=== PATIENT | female | born 1970 | race Caucasian/White ===

== ENCOUNTER 2018-05-19 15:13 | Emergency (ER) | payer BC, OTHER ==
[2018-05-19] MEDS ORDERED: IPRATROPIUM/ALBUTEROL 3 ML NEB INH STA (16:25)
[2018-05-19] MEDS ORDERED: DEXAMETHASONE 10 MG/ML VIAL PO STA (16:25)
--- NOTE | 2018-05-19 16:32 | ED Physician Documentation ---
PD HPI URI - Stated complaint Stated Complaint: COUGH, TIGHT LUNGS - Chief complaint Chief Complaint: Resp - History obtained from History obtained from: Patient - History of Present Illness Timing - onset: How many weeks ago (2) Timing duration: Weeks (2) Timing details: Gradual onset Pain level max: 0 Pain level now: 0 Associated symptoms: Nasal congestion, Rhinorrhea, Dry cough, Dyspnea (wheezing) . No: Fever, Chills Contributing factors: Sick contact (parents both with recent pneumonia) Improves by: Rest, MDI/nebulizer (albuterol) Worsened by: Activity, Breathing Similar symptoms before: Diagnosis ("bronchitis") Recently seen: Other (Patient was recently seen at an urgent care clinic in [place] where she lives, had a negative chest x-ray there. Was placed on azithromycin for "bronchitis". She is not better yet. Was also given an albuterol inhaler without a spacer. Was also given a prescription for prednisone which she has not yet taken) Review of Systems Ten Systems: 10 systems reviewed and negative Constitutional: denies: Fever, Chills Nose: reports: Rhinorrhea / runny nose, Congestion Throat: denies: Sore throat Cardiac: denies: Chest pain / pressure Respiratory: reports: Dyspnea, Cough, Wheezing GI: denies: Nausea, Vomiting, Diarrhea Skin: denies: Rash Musculoskeletal: denies: Neck pain, Back pain Neurologic: denies: Focal weakness, Numbness, Headache PD PAST MEDICAL HISTORY - Past Medical History Past Medical History: Yes Endocrine/Autoimmune: Other Psych: Anxiety - Past Surgical History 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 - Present Medications Home Medications: Ambulatory Orders Medication Instructions Recorded Confirmed Fluoxetine HCl [Prozac] 20 mg PO BID 04/09/13 10/16/16 Desmopressin Acetate 0.2 mg PO BID 10/04/13 10/16/16 Benzonatate [Tessalon Perle] 100 - 200 mg PO TID PRN #30 capsule 05/19/18 Cetirizine HCl/Pseudoephedrine 1 each PO BID PRN #30 tab.er.12h 05/19/18 [Zyrtec-D Tablet] traZODone [Desyrel] 100 mg PO HS 05/19/18 05/19/18 - Allergies Allergies/Adverse Reactions: Allergies Allergy/AdvReac Type Severity Reaction Status Date / Time acetaminophen [From Percocet] Allergy unknown Verified 05/19/18 15:26 doxycycline Allergy Respiratory Verified 05/19/18 15:26 oxycodone HCl * AdvReac Dizziness Verified 05/19/18 15:26 [From Percocet] sulfamethoxazole AdvReac Dizziness Verified 05/19/18 15:26 [From Bactrim] trimethoprim [From Bactrim] AdvReac Dizziness Verified 05/19/18 15:26 - Living Situation Living Arrangement: reports: At home - Social History Does the pt smoke?: Yes Smoking Status: Current every day smoker Does the pt drink ETOH?: Yes Does the pt have substance abuse?: No - Immunizations Immunizations are current?: No - POLST Patient has POLST: No PD ED PE NORMAL - Vitals Vital signs reviewed: Yes - General General: Alert and oriented X 3, No acute distress - HEENT HEENT: Moist mucous membranes - Neck Neck: Supple, no meningeal sign - Cardiac Cardiac: RRR - Respiratory Respiratory: Other (wheezing B. Rhonchi RLL. no resp distress.) - Abdomen Abdomen: Soft, Non tender, Non distended - Back Back: No CVA TTP, No spinal TTP - Derm Derm: Warm and dry - Extremities Extremities: No edema, No calf tenderness / cord - Neuro Neuro: Alert and oriented X 3 - Psych Psych: Normal mood, Normal affect Results - Vitals Vitals: Vital Signs - 24 hr 05/19/18 05/19/18 05/19/18 15:23 16:50 17:17 Temperature 36.3 C L 36.4 C L Heart Rate 59 L 67 62 Respiratory 16 16 18 Rate Blood Pressure 130/83 H 126/73 O2 Saturation 99 100 Oxygen O2 Source Room air - Rads (name of study) cxr Radiology: Prelim report reviewed, EMP read contemporaneously, See rad report ( No acute disease) PD MEDICAL DECISION MAKING - ED course Complexity details: reviewed results, re-evaluated patient, considered differential, d/w patient ED course: Patient is a 47-year-old female who presents to the emergency department with coughing for the past several weeks. She is a smoker. No acute findings on x- ray. X-rays performed as there were rhonchi that did not clear with coughing in the right lower lobe and there was concern for possible pneumonia. She feels much better after nebulizer treatment here. Also given spacer teaching. Will continue supportive care and have her start her steroids at home. Given dexamethasone here. No hypoxia. No respiratory distress. Patient counseled regarding signs and symptoms for which I believe and urgent re-evaluation would be necessary. Patient with good understanding of and agreement to plan and is comfortable going home at this time This document was made in part using voice recognition software. While efforts are made to proofread this document, sound alike and grammatical errors may occur. - Sepsis Event Vital Signs: Vital Signs - 24 hr 05/19/18 05/19/18 05/19/18 15:23 16:50 17:17 Temperature 36.3 C L 36.4 C L Heart Rate 59 L 67 62 Respiratory 16 16 18 Rate Blood Pressure 130/83 H 126/73 O2 Saturation 99 100 Oxygen O2 Source Room air Departure - Departure Disposition: 01 Home, Self Care Clinical Impression: Upper respiratory tract infection Qualifiers: URI type: unspecified viral URI Qualified Code(s): J06.9 - Acute upper respiratory infection, unspecified Condition: Good Instructions: ED URI Viral W Wheezing Follow-Up: ANIYAH BALL [Primary Care Provider] - Within 1 week Prescriptions: Benzonatate [Tessalon Perle] 100 - 200 mg PO TID PRN #30 capsule PRN Reason: Cough Cetirizine HCl/Pseudoephedrine [Zyrtec-D Tablet] 1 each PO BID PRN #30 tab.er.12h PRN Reason: Nasal Congestion Comments: Continue the inhaler at home and start the prednisone tomorrow. Return if you worsen. There is no pneumonia on your chest x-ray today. Discharge Date/Time: 05/19/18 17:17
[2018-05-19 17:18] VITALS: BP 126/73
--- NOTE | 2018-05-19 17:22 | XRAY Report ---
Procedure Date: 05/19/2018 Accession Number: [id number] / [id number] Procedure: XR - Chest 2 View X-Ray CPT Code: 17818 FULL RESULT: EXAM: CHEST RADIOGRAPHY EXAM DATE: 05/19/2018 04:55 PM. CLINICAL HISTORY: Cough. Rhonchi RLL. COMPARISON: 10/16/2016. TECHNIQUE: 2 views. FINDINGS: Lungs/Pleura: No focal opacities evident. No pleural effusion. No pneumothorax. Normal volumes. Mediastinum: Heart and mediastinal contours are unremarkable. Other: No bony abnormality noted. Left breast clip again identified. IMPRESSION: Normal 2-view chest radiography. RADIA
== END 2018-05-19 17:17 | disposition home or self-care (01) ==
LOC: ED 15:13
DX: J06.9 Acute upper respiratory infection, unspecified (principal)
CPT/HCPCS: 71046; 94640; 94664; 99283

== ENCOUNTER 2019-09-01 16:02 | Outpatient (CLI) | payer OTHER | END 2019-09-01 16:03 | disposition critical access hospital (66) | LOC: EMS 16:02 | PROVIDERS: ATTEND Surgery | DX: R06.00 Dyspnea, unspecified (principal); F41.9 Anxiety disorder, unspecified | CPT/HCPCS: A0425; A0429 ==

== ENCOUNTER 2019-09-01 16:32 | Emergency (ER) | payer OTHER ==
[2019-09-01] MEDS ORDERED: LORazepam 1 MG TABLET PO STA (17:02)
--- NOTE | 2019-09-01 17:04 | ED Physician Documentation ---
PD HPI DYSPNEA - Stated complaint Stated Complaint: ANXIETY - Chief complaint Chief Complaint: Resp - History obtained from History obtained from: Patient, EMS - History of Present Illness Timing - onset: Other (49-year-old woman with history of anxiety has been having issues lately with anxiety, shortness of breath, and back pain. This is her seventh ER visit in the last month per her and has had multiple negative chest x-rays, negative D-dimers, negative troponins. She was given hydroxyzine this morning which was ineffective. She was maintained on Klonopin long-term but stopped several months ago.) Review of Systems Ten Systems: 10 systems reviewed and negative Constitutional: denies: Fever, Chills Cardiac: denies: Chest pain / pressure, Pedal edema, Calf pain Respiratory: reports: Dyspnea. 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 - Present Medications Home Medications: Ambulatory Orders Medication Instructions Recorded Confirmed Fluoxetine HCl [Prozac] 20 mg PO BID 04/09/13 10/16/16 Desmopressin Acetate 0.2 mg PO BID 10/04/13 10/16/16 Benzonatate [Tessalon Perle] 100 - 200 mg PO TID PRN #30 capsule 05/19/18 Cetirizine HCl/Pseudoephedrine 1 each PO BID PRN #30 tab.er.12h 05/19/18 [Zyrtec-D Tablet] traZODone [Desyrel] 100 mg PO HS 05/19/18 05/19/18 Lorazepam [Ativan] 1 mg PO TID PRN #15 tablet 09/01/19 - Allergies Allergies/Adverse Reactions: Allergies Allergy/AdvReac Type Severity Reaction Status Date / Time acetaminophen [From Percocet] Allergy unknown Verified 05/19/18 15:26 doxycycline Allergy Respiratory Verified 05/19/18 15:26 oxycodone HCl * AdvReac Dizziness Verified 05/19/18 15:26 [From Percocet] sulfamethoxazole AdvReac Dizziness Verified 05/19/18 15:26 [From Bactrim] trimethoprim [From Bactrim] AdvReac Dizziness Verified 05/19/18 15:26 - Social History Does the pt smoke?: No Smoking Status: Former smoker Does the pt drink ETOH?: Yes Does the pt have substance abuse?: No - Immunizations Immunizations are current?: No - POLST Patient has POLST: No PD ED PE NORMAL - Vitals Vital signs reviewed: Yes - General General: Alert and oriented X 3, No acute distress, Other (She is anxious) - Cardiac Cardiac: RRR, No murmur - Respiratory Respiratory: No respiratory distress, Clear bilaterally - Abdomen Abdomen: Soft, Non tender - Extremities Extremities: No edema, No calf tenderness / cord - Neuro Neuro: Alert and oriented X 3, Normal speech Results - Vitals Vitals: Vital Signs - 24 hr 09/01/19 09/01/19 16:36 18:11 Temperature 37.2 C 36.8 C Heart Rate 79 58 L Respiratory 24 18 Rate Blood Pressure 139/88 H 127/86 H O2 Saturation 98 98 Oxygen O2 Source Room air - Labs Labs: Laboratory Tests 09/01/19 09/01/19 17:15 17:15 WBC 8.3 RBC 4.18 L Hgb 12.2 Hct 37.2 MCV 89.0 MCH 29.2 MCHC 32.8 RDW 12.6 Plt Count 405 MPV 9.7 Neut # (Auto) 4.6 Lymph # (Auto) 2.8 [place] # (Auto) 0.7 Eos # (Auto) 0.1 Baso # (Auto) 0.1 Absolute Nucleated RBC 0.00 Nucleated RBC % 0.0 Sodium 141 Potassium 3.7 Chloride 108 Carbon Dioxide 24 Anion Gap 9.0 BUN 9 Creatinine 0.6 Estimated GFR (MDRD) 105 Glucose 90 Calcium 9.9 PD MEDICAL DECISION MAKING - ED course ED course: 49-year-old woman with anxiety and shortness of breath. No clinical evidence of PE, d-dimer was negative on previous visits, PERC negative. Has been thoroughly ruled out for ACS. Previous x-rays, 3 of them in the last month have been negative per her. Feeling much better after Ativan and visibly less anxious. Departure - Departure Disposition: 01 Home, Self Care Clinical Impression: Anxiety Condition: Good Record reviewed to determine appropriate education?: Yes Instructions: ED Panic Attack Prescriptions: Lorazepam [Ativan] 1 mg PO TID PRN #15 tablet PRN Reason: Anxiety Comments: Talk with your doctor about changing her counselor to a cognitive behavioral therapist. Return for new or worsening symptoms. Do not drink or drive while taking lorazepam/Ativan. Discharge Date/Time: 09/01/19 18:10
[2019-09-01 17:23] LABS: BASOPHILS # (AUTO) 0.1 10^3/uL (0.0-0.1); EOSINOPHILS # (AUTO) 0.1 10^3/uL (0.0-0.7); HGB - HEMOGLOBIN 12.2 g/dL (12.0-16.0); LYMPHOCYTES # (AUTO) 2.8 10^3/uL (1.5-3.5); LYMPHOCYTES % (AUTO) 33.5 %; MEAN CORPUSCULAR HEMOGLOBIN 29.2 pg (27.0-31.0); MEAN CORPUSCULAR HGB CONC 32.8 g/dL (32.0-36.0); MEAN PLATELET VOLUME 9.7 fL (7.9-10.8); MONOCYTES # (AUTO) 0.7 10^3/uL (0.0-1.0); MONOCYTES % (AUTO) 8.8 %; NEUTROPHILS # (AUTO) 4.6 10^3/uL (1.5-6.6); NEUTROPHILS % (AUTO) 55.3 %; PLT - PLATELET COUNT 405 10^3/uL (130-450); RED BLOOD COUNT 4.18 10^6/uL (4.20-5.40); RED CELL DISTRIBUTION WIDTH 12.6 % (12.0-15.0); WHITE BLOOD COUNT 8.3 x10^3/uL (4.8-10.8)
[2019-09-01 17:31] LABS: CALCIUM 9.9 mg/dL (8.5-10.3); CREATININE 0.6 mg/dL (0.4-1.0)
[2019-09-01 18:12] VITALS: BP 127/86
== END 2019-09-01 18:10 | disposition home or self-care (01) ==
LOC: EDUNIT# → ED 16:32
DX: F41.9 Anxiety disorder, unspecified (principal); E23.2 Diabetes insipidus; Z87.891 Personal history of nicotine dependence
CPT/HCPCS: 36415; 80048; 85025; 99283; 99284; J8499

== ENCOUNTER 2022-07-30 07:46 | Outpatient (CLI) | payer OTHER ==
--- NOTE | 2022-07-30 09:02 | CT Report ---
PROCEDURE: Low Dose Lung Cancer Screen INDICATIONS: CURRENT SMOKER TECHNIQUE: Noncontrast low-dose axial images were acquired from the pulmonary apices to the posterior costophren ic angles. Multiplanar MIP reformats were then reconstructed. For radiation dose reduction, the follo wing was used: automated exposure control, adjustment of mA and/or kV according to patient size. COMPARISON: None. FINDINGS: Image quality: Excellent. Lungs and pleura: 4 mm nodule in the periphery the right lower lobe on image 4/164. Mediastinum: Heart size is normal. No pericardial effusion. No mediastinal adenopathy by size crit eria. Thoracic aorta and central pulmonary arteries are normal in size. Esophagus is normal in brandon alexis. No hiatal hernia. Bones and chest wall: No suspicious bony lesions. No vertebral body compression fractures. No axil ganesh or supraclavicular adenopathy by size criteria. The thyroid is normal in size and there are no incidental findings. Abdomen: Visualized upper abdomen solid organs and bowel loops appear normal in the absence of contr ast. IMPRESSION: Small 4 mm nodule in the periphery the right lower lobe. Lung RADS category 1: Benign findings. Continue annual screening Reviewed by: Beto Dudley MD on 07/30/2022 8:00 AM APARNA Approved by: Beto Dudley MD on 07/30/2022 8:00 AM APARNA Station ID: [id number]
== END 2022-07-30 07:47 | disposition home or self-care (01) ==
LOC: DI 07:46
PROVIDERS: ATTEND Physician Assistant
DX: Z12.2 Encounter for screening for malignant neoplasm of respiratory organs (principal); F17.210 Nicotine dependence, cigarettes, uncomplicated; R91.1 Solitary pulmonary nodule

== ENCOUNTER 2023-03-11 12:53 | Emergency (ER) | payer OTHER ==
--- NOTE | 2023-03-11 13:13 | ED Physician Documentation ---
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 Subsequently developed pain between the shoulder blades with epigastric pain about 1130 this morning. There is no associated shortness of breath. No history of heart problems. She declines anything for the pain. 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 - Present Medications Home Medications: Ambulatory Orders Medication Instructions Recorded Confirmed Fluoxetine HCl [Prozac] 20 mg PO BID 04/09/13 10/16/16 Desmopressin Acetate 0.2 mg PO BID 10/04/13 10/16/16 Benzonatate [Tessalon Perle] 100 - 200 mg PO TID PRN #30 capsule 05/19/18 Cetirizine HCl/Pseudoephedrine 1 each PO BID PRN #30 tab.er.12h 05/19/18 [Zyrtec-D Tablet] traZODone [Desyrel] 100 mg PO HS 05/19/18 05/19/18 Lorazepam [Ativan] 1 mg PO TID PRN #15 tablet 09/01/19 - Allergies Allergies/Adverse Reactions: Allergies Allergy/AdvReac Type Severity Reaction Status Date / Time acetaminophen [From Percocet] Allergy unknown Verified 03/11/23 13:02 doxycycline Allergy Respiratory Verified 03/11/23 13:02 oxycodone HCl * AdvReac Dizziness Verified 03/11/23 13:02 [From Percocet] sulfamethoxazole AdvReac Dizziness Verified 03/11/23 13:02 [From Bactrim] trimethoprim [From Bactrim] AdvReac Dizziness Verified 03/11/23 13:02 - Social History Does the pt smoke?: No Smoking Status: Former smoker Does the pt drink ETOH?: Yes Does the pt have substance abuse?: No - Immunizations Immunizations are current?: No - POLST Patient has POLST: No PD ED PE NORMAL - Vitals Vital signs reviewed: Yes - General General: Alert and oriented X 3, No acute distress - HEENT HEENT: PERRL, EOMI - Neck Neck: Supple, no meningeal sign, No bony TTP - Cardiac Cardiac: RRR, No murmur, Strong equal pulses (Equal radial pulses) - Respiratory Respiratory: No respiratory distress, Clear bilaterally - Abdomen Abdomen: Non tender - Extremities Extremities: No edema, No calf tenderness / cord - Neuro Neuro: Alert and oriented X 3, Normal speech Results - Vitals Vitals: Vital Signs - 24 hr 03/11/23 03/11/23 12:55 15:01 Temperature 36.6 C Heart Rate 73 71 Respiratory 16 18 Rate Blood Pressure 158/85 H 140/81 H O2 Saturation 97 99 Oxygen O2 Source Room air - EKG (time done) 1246 EKG releavant findings:: EKG personally interpreted by author of this note. Relevant findings are: Rate: Rate (enter#) (68) Rhythm: NSR [place]: Normal Intervals: Normal MD QRS: Normal Ischemia: Normal ST segments. No: ST elevation c/w ischemia, ST depression - Labs Labs: Laboratory Tests 03/11/23 03/11/23 03/11/23 13:45 14:01 14:01 WBC 7.7 RBC 4.05 L Hgb 11.7 L Hct 36.1 L MCV 89.1 MCH 28.9 MCHC 32.4 RDW 12.6 Plt Count 372 MPV 9.4 Neut # (Auto) 5.9 Lymph # (Auto) 1.3 L [place] # (Auto) 0.4 Eos # (Auto) 0.1 Baso # (Auto) 0.1 Absolute Nucleated RBC 0.00 Nucleated RBC % 0.0 Sodium 136 Potassium 3.5 Chloride 102 Carbon Dioxide 24 Anion Gap 10.0 BUN 14 Creatinine 0.6 Estimated GFR (MDRD) 104 Glucose 95 Calcium 9.2 Total Bilirubin 0.3 AST 21 ALT 22 Alkaline Phosphatase 73 Troponin I High Sens 2.7 Total Protein 7.7 Albumin 4.1 Globulin 3.6 Albumin/Globulin Ratio 1.1 Lipase 36 - Rads (name of study) CT angiography abdomen: Small hiatal hernia, fat-containing umbilical hernia, diverticulosis, normal aorta Relevant Findings:: Final report received, EMP independent interpretation of test CT angiography chest negative Relevant Findings:: Final report received, EMP independent interpretation of test PD Medical Decision Making - ED course Complexity details: reviewed results (CBC reviewed showing mild anemia. CMP reviewed and normal. Troponin normal/negative at 2.7.), considered differential (52-year-old woman with chest pain radiating to the back. Differential would include a gastric cause, ACS, dissection.) Departure - Departure Disposition: 01 Home, Self Care Clinical Impression: Atypical chest pain Condition: Good Record reviewed to determine appropriate education?: Yes Instructions: ED Chest Pain Atypical Unkn Cause Comments: No worrisome or concerning acute findings on lab work or CT scanning today. Your aorta is fine. You do have a small hiatal and umbilical hernias. Suspect your pain was related to the excess caffeine use and stomach upset. Return if years. Follow-up with your primary care physician, next available appointment.
--- NOTE | 2023-03-11 13:25 | XRAY Report ---
PROCEDURE: Chest 1 View X-Ray INDICATIONS: Chest Pain TECHNIQUE: One view of the chest was acquired. COMPARISON: Chest x-ray 717 FINDINGS: Surgical changes and devices: None. Lungs and pleura: No pleural effusions or pneumothorax. Lungs are clear. Mediastinum: Mediastinal contours appear normal. Heart size is normal. Bones and chest wall: No suspicious bony lesions. Overlying soft tissues appear unremarkable. IMPRESSION: No acute pulmonary process. Reviewed by: Araceli Jane MD on 03/11/2023 1:24 PM PDT Approved by: Araceli Jane MD on 03/11/2023 1:24 PM PDT Station ID: [id number]
[2023-03-11] MEDS ORDERED: iohexoL-300 100 ML VIAL ONE (13:52)
[2023-03-11 13:53] LABS: BASOPHILS # (AUTO) 0.1 10^3/uL (0.0-0.1); BASOPHILS % (AUTO) 0.9 %; EOSINOPHILS # (AUTO) 0.1 10^3/uL (0.0-0.7); EOSINOPHILS % (AUTO) 0.6 %; HCT - HEMATOCRIT 36.1 % (37.0-47.0); HGB - HEMOGLOBIN 11.7 g/dL (12.0-16.0); LYMPHOCYTES # (AUTO) 1.3 10^3/uL (1.5-3.5); LYMPHOCYTES % (AUTO) 16.2 %; MEAN CORPUSCULAR HEMOGLOBIN 28.9 pg (27.0-31.0); MEAN CORPUSCULAR HGB CONC 32.4 g/dL (32.0-36.0); MEAN CORPUSCULAR VOLUME 89.1 fL (81.0-99.0); MEAN PLATELET VOLUME 9.4 fL (7.9-10.8); MONOCYTES # (AUTO) 0.4 10^3/uL (0.0-1.0); MONOCYTES % (AUTO) 5.7 %; NEUTROPHILS # (AUTO) 5.9 10^3/uL (1.5-6.6); NEUTROPHILS % (AUTO) 76.2 %; PLT - PLATELET COUNT 372 10^3/uL (130-450); RED BLOOD COUNT 4.05 10^6/uL (4.20-5.40); RED CELL DISTRIBUTION WIDTH 12.6 % (12.0-15.0); WHITE BLOOD COUNT 7.7 x10^3/uL (4.8-10.8)
[2023-03-11 14:43] LABS: ALBUMIN 4.1 g/dL (3.2-5.5); ALBUMIN/GLOBULIN RATIO 1.1 (1.0-2.2); BILIRUBIN,TOTAL 0.3 mg/dL (0.2-1.0); CALCIUM 9.2 mg/dL (8.5-10.3); CREATININE 0.6 mg/dL (0.4-1.0); POTASSIUM 3.5 mmol/L (3.5-5.0); TOTAL PROTEIN 7.7 g/dL (6.7-8.2)
[2023-03-11 15:09] VITALS: BP 140/81
[2023-03-11] MEDS ORDERED: iohexoL-300 100 ML VIAL IVP ONE (15:47)
--- NOTE | 2023-03-11 16:03 | CT Report ---
PROCEDURE: ANGIO ABDOMEN/PELVIS W INDICATIONS: Aorta protocol for chest back and abdominal pain CONTRAST: 90ml omni 300 TECHNIQUE: After the administration of intravenous contrast, 2.5 mm thick sections acquired from the diaphragm t o the symphysis. 10 mm maximum-intensity projection (MIP) reformats were then acquired. For radiati on dose reduction, the following was used: automated exposure control, adjustment of mA and/or kV ac cording to patient size. COMPARISON: 12/29/2014 Correlation is made with the accompanying chest CT. FINDINGS: Image quality: Excellent. Aorta: Normal size. No findings of stenosis or aneurysm can be seen. No dissection flap is seen. No periaortic inflammatory changes are seen. Mesenteric arteries: Celiac trunk, superior and inferior mesenteric arteries appear patent. Right pelvic arteries: Normal, patent. Left pelvic arteries: Normal, patent. Extravascular soft tissues: Lung bases are clear. A small hiatal hernia is incidentally noted. Hear t size is normal. Liver and spleen are normal in size and enhancement. Gallbladder wall does not ap pear thickened. . Biliary system is non dilated. Pancreas enhances normally. No adrenal nodules. Kidneys are normal in size and enhancement, without hydronephrosis. Non opacified bowel loops are n ormal in wall thickness and caliber. Diverticulosis can be seen, without alyssia findings of active di verticulitis. No free fluid or air. No retroperitoneal or mesenteric adenopathy. There is a mild fat-containing periumbilical hernia. This patient is status post hysterectomy. No adnexal masses can be seen. No suspicious bony lesions. No vertebral body compression fractures. Age-appropriate degenerative c hanges are seen. IMPRESSION: Normal aorta. Additional findings: Small hiatal hernia Mild fat-containing periumbilical hernia Hysterectomy Diverticulosis, without findings of active diverticulitis. Reviewed by: Bhupendra Calles MD on 03/11/2023 3:02 PM APARNA Approved by: Bhupendra Calles MD on 03/11/2023 3:02 PM APARNA Station ID: [id number]
--- NOTE | 2023-03-11 16:05 | CT Report ---
PROCEDURE: ANGIO CHEST W/WO INDICATIONS: AORTA PROTOCOL CONTRAST: 90ml omni 300 TECHNIQUE: After the administration of intravenous contrast, 2 mm axial images were acquired from the pulmonary apices to the posterior costophrenic angles during the arterial phase. In addition, 1 mm lung kernel and 5 mm soft tissue kernel reconstructions were performed. 3-dimensional coronal oblique maximum int ensity projection (MIP) reformats, 8 mm axial MIP, and 5 mm coronal and sagittal MPR reformats were t hen performed through the thorax. For radiation dose reduction, the following was used: automated exp osure control, adjustment of mA and/or kV according to patient size. COMPARISON: Correlation is made with the accompanying abdominal CT, 03/11/2023. FINDINGS: Image quality: Excellent. Large vessels: No filling defects within the opacified pulmonary arteries, accounting for motion and contrast timing. No evidence of acute aortic syndrome or aortic aneurysm. The ascending thoracic aort a demonstrates normal caliber, measuring 3 cm transversely on coronal images. Lungs and pleura: No consolidation. No pleural effusions. No pneumothorax. No suspicious pulmonary n odules which require follow up. Minimal fat-containing hernias can be seen involving the posterior as pects of both diaphragms. Mediastinum: Heart size is normal. No pericardial effusions. No mediastinal adenopathy by size criter ia. A small hiatal hernia is seen. Chest wall and lower neck: Thyroid is unremarkable. No axillary or supraclavicular adenopathy by size . Bones: No aggressive osseous abnormality. Upper Abdomen: Unremarkable. IMPRESSION: Normal aorta. The limits of this study, no large or central pulmonary embolism can be seen. Clear lungs. Additional findings: Mild fat-containing hernias along the posterior aspects of both diaphragms. Small hiatal hernia Reviewed by: Bhupendra Calles MD on 03/11/2023 3:04 PM APARNA Approved by: Bhupendra Calles MD on 03/11/2023 3:04 PM APARNA Station ID: [id number]
== END 2023-03-11 16:19 | disposition home or self-care (01) ==
LOC: ED 12:53
DX: R07.89 Other chest pain (principal); Z87.891 Personal history of nicotine dependence
CPT/HCPCS: 36415; 71045; 71275; 74174; 80053; 83690; 84484; 85025; 93005; 99283; 99284; Q9967

== ENCOUNTER 2023-03-30 17:00 | Outpatient (CLI) | payer OTHER ==
[2023-03-30 20:26] LABS: BASOPHILS # (AUTO) 0.1 10^3/uL (0.0-0.1); BASOPHILS % (AUTO) 0.9 %; EOSINOPHILS # (AUTO) 0.2 10^3/uL (0.0-0.7); EOSINOPHILS % (AUTO) 2.2 %; HCT - HEMATOCRIT 37.2 % (37.0-47.0); HGB - HEMOGLOBIN 11.7 g/dL (12.0-16.0); LYMPHOCYTES # (AUTO) 1.9 10^3/uL (1.5-3.5); LYMPHOCYTES % (AUTO) 27.5 %; MEAN CORPUSCULAR HEMOGLOBIN 28.7 pg (27.0-31.0); MEAN CORPUSCULAR HGB CONC 31.5 g/dL (32.0-36.0); MEAN CORPUSCULAR VOLUME 91.2 fL (81.0-99.0); MONOCYTES # (AUTO) 0.6 10^3/uL (0.0-1.0); NEUTROPHILS # (AUTO) 4.2 10^3/uL (1.5-6.6); NEUTROPHILS % (AUTO) 61.1 %; PLT - PLATELET COUNT 427 10^3/uL (130-450); RED BLOOD COUNT 4.08 10^6/uL (4.20-5.40); RED CELL DISTRIBUTION WIDTH 13.2 % (12.0-15.0); WHITE BLOOD COUNT 6.9 x10^3/uL (4.8-10.8)
[2023-04-01 03:10] LABS: HBsAG SCREEN Negative (Negative); HEPATITIS B SURFACE AB QUAL Non Reactive (.)
[2023-04-01 06:10] LABS: HCV AB Non Reactive (Non Reactive)
== END 2023-03-30 17:01 | disposition home or self-care (01) ==
LOC: LAB.N 17:00
PROVIDERS: ATTEND Physician Assistant
DX: D64.9 Anemia, unspecified (principal); Z13.9 Encounter for screening, unspecified
CPT/HCPCS: 36415; 85025; 86706; 86707; 86803; 87340; 87350

== ENCOUNTER 2023-05-12 13:55 | Outpatient (CLI) | payer OTHER | END 2023-05-12 13:56 | disposition home or self-care (01) | LOC: MAC.MOP 13:55 | PROVIDERS: ATTEND Physician Assistant | DX: R00.2 Palpitations (principal) | CPT/HCPCS: 93242 ==

== ENCOUNTER 2023-06-08 10:30 | Outpatient (CLI) | payer OTHER | END 2023-06-08 10:31 | disposition home or self-care (01) | LOC: MAC.INF 10:30 | PROVIDERS: ATTEND Physician Assistant | DX: I47.1 Supraventricular tachycardia (principal); I49.1 Atrial premature depolarization; I49.3 Ventricular premature depolarization | CPT/HCPCS: 93244 ==

== ENCOUNTER 2023-06-19 08:54 | Outpatient (CLI) | payer OTHER ==
[2023-06-19 09:10] LABS: BASOPHILS # (AUTO) 0.1 10^3/uL (0.0-0.1); BASOPHILS % (AUTO) 1.6 %; EOSINOPHILS # (AUTO) 0.2 10^3/uL (0.0-0.7); EOSINOPHILS % (AUTO) 3.1 %; HGB - HEMOGLOBIN 12.5 g/dL (12.0-16.0); LYMPHOCYTES # (AUTO) 1.6 10^3/uL (1.5-3.5); LYMPHOCYTES % (AUTO) 28.5 %; MEAN CORPUSCULAR HEMOGLOBIN 28.9 pg (27.0-31.0); MEAN CORPUSCULAR HGB CONC 32.1 g/dL (32.0-36.0); MEAN CORPUSCULAR VOLUME 90.1 fL (81.0-99.0); MEAN PLATELET VOLUME 9.1 fL (7.9-10.8); MONOCYTES # (AUTO) 0.5 10^3/uL (0.0-1.0); MONOCYTES % (AUTO) 8.3 %; NEUTROPHILS # (AUTO) 3.2 10^3/uL (1.5-6.6); NEUTROPHILS % (AUTO) 58.3 %; PLT - PLATELET COUNT 390 10^3/uL (130-450); RED BLOOD COUNT 4.33 10^6/uL (4.20-5.40); RED CELL DISTRIBUTION WIDTH 13.4 % (12.0-15.0); WHITE BLOOD COUNT 5.5 x10^3/uL (4.8-10.8)
[2023-06-19 09:16] LABS: % IRON SATURATION 39 % (20-50); CHOL/HDL RATIO 2.1 (<4.4); CHOLESTEROL 196 mg/dL; HDL CHOLESTEROL 92 mg/dL; IRON 212 ug/dL (50-212); LDL CHOLESTEROL,CALCULATED 88 mg/dL; TOTAL IRON BINDING CAPACITY 545 ug/dL (250-450); TRANSFERRIN 389 mg/dL (203-362); TRIGLYCERIDES 78 mg/dL (48-352); VLDL CHOLESTEROL 16 mg/dL
[2023-06-19 09:39] LABS: FERRITIN 10.5 ng/mL (11.0-306.8)
== END 2023-06-19 08:55 | disposition home or self-care (01) ==
LOC: LAB 08:54
PROVIDERS: ATTEND Physician Assistant
DX: D64.9 Anemia, unspecified (principal); Z13.220 Encounter for screening for lipoid disorders
CPT/HCPCS: 36415; 80061; 82607; 82728; 82746; 83540; 83721; 84466; 85025

== ENCOUNTER 2023-09-28 08:25 | Outpatient (CLI) | payer OTHER ==
[2023-09-28 08:36] LABS: BASOPHILS # (AUTO) 0.1 10^3/uL (0.0-0.1); BASOPHILS % (AUTO) 1.8 %; EOSINOPHILS # (AUTO) 0.2 10^3/uL (0.0-0.7); EOSINOPHILS % (AUTO) 3.4 %; HCT - HEMATOCRIT 42.3 % (37.0-47.0); HGB - HEMOGLOBIN 13.3 g/dL (12.0-16.0); LYMPHOCYTES # (AUTO) 1.4 10^3/uL (1.5-3.5); LYMPHOCYTES % (AUTO) 28.4 %; MEAN CORPUSCULAR HGB CONC 31.4 g/dL (32.0-36.0); MEAN CORPUSCULAR VOLUME 92.2 fL (81.0-99.0); MEAN PLATELET VOLUME 9.3 fL (7.9-10.8); MONOCYTES # (AUTO) 0.4 10^3/uL (0.0-1.0); MONOCYTES % (AUTO) 8.7 %; NEUTROPHILS # (AUTO) 2.9 10^3/uL (1.5-6.6); NEUTROPHILS % (AUTO) 57.5 %; PLT - PLATELET COUNT 430 10^3/uL (130-450); RED BLOOD COUNT 4.59 10^6/uL (4.20-5.40); RED CELL DISTRIBUTION WIDTH 13.2 % (12.0-15.0)
[2023-09-28 09:05] LABS: THYROID STIMULATING HORMONE 1.69 uIU/mL (0.34-5.60)
[2023-09-28 09:12] LABS: FERRITIN 6.7 ng/mL (11.0-306.8)
== END 2023-09-28 08:26 | disposition home or self-care (01) ==
LOC: LAB 08:25
PROVIDERS: ATTEND Physician Assistant
DX: D64.9 Anemia, unspecified (principal); R41.3 Other amnesia; R79.89 Other specified abnormal findings of blood chemistry
CPT/HCPCS: 36415; 82728; 82746; 83540; 84443; 84466; 85025

== ENCOUNTER 2023-10-13 12:43 | Outpatient (CLI) | payer OTHER ==
[~2023-10-13 12:43] MED LIST: GADOTERATE MEGLUMINE 2.5 MMOL/5 ML VIAL ONE; GADOTERATE MEGLUMINE 5 MMOL/10 ML VIAL ONE
[2023-10-13 13:24] LABS: CREATININE 0.7 mg/dL (0.6-1.3)
--- NOTE | 2023-10-13 22:26 | CT Report ---
PROCEDURE: Low Dose Lung Cancer Screen INDICATIONS: HIST OF CVA, HIST OF TOBACCO USE TECHNIQUE: A CT scan of the chest was performed. Intravenous contrast media was not administered. Images were re corded and evaluated at appropriate window settings. Reformats: axial MIP of the chest, coronal and s agittal. For radiation dose reduction, the following was used: automated exposure control, adjustment of mA and/or kV according to patient size. COMPARISON: 07/30/2022. FINDINGS: Image quality: Excellent. Prior cancer history: Unsure. Lungs and pleura: No pleural effusions. No pneumothorax. Stable 4 mm nodule in the periphery of the right lower lobe (151/series 3). No new suspicious or enlarging pulmonary nodules. Mediastinum: Heart size is normal. No pericardial effusion. No large vessel abnormality. No mediastin al adenopathy by size criteria. Chest wall and lower neck: Thyroid is unremarkable. Surgical clips noted in the right thyroid fossa. No axillary or supraclavicular adenopathy by size. Bones: No aggressive osseous abnormality. Upper Abdomen: Unremarkable. IMPRESSION: No acute cardiopulmonary abnormalities. Stable 4 mm pulmonary nodule in the periphery of the right lower lobe. Lung RAD: 2 - Benign. Recommendation: Continue annual screening in 12 Months with LDCT Non-Lung Significant Findings: None. Reviewed by: West Rob MD on 10/13/2023 10:25 PM PST Approved by: West Rob MD on 10/13/2023 10:25 PM PST Station ID: [id number]
== END 2023-10-13 12:44 | disposition home or self-care (01) ==
LOC: DI 12:43
PROVIDERS: ATTEND Physician Assistant
DX: Z12.2 Encounter for screening for malignant neoplasm of respiratory organs (principal); Z86.73 Personal history of transient ischemic attack (TIA), and cerebral infarction without residual deficits; Z87.891 Personal history of nicotine dependence; R91.1 Solitary pulmonary nodule
CPT/HCPCS: 36415; 82565

== ENCOUNTER 2023-10-18 08:56 | Outpatient (CLI) | payer OTHER ==
[~2023-10-18 08:56] MED LIST changes: +GADOTERATE MEGLUMINE 10 MMOL/20 ML VIAL ONE; -GADOTERATE MEGLUMINE 2.5 MMOL/5 ML VIAL ONE; -GADOTERATE MEGLUMINE 5 MMOL/10 ML VIAL ONE
--- NOTE | 2023-10-18 15:50 | MRI Report ---
PROCEDURE: MRI brain with and without contrast INDICATIONS: Memory impairment TECHNIQUE: Multiplanar multisequential MR images of the brain were obtained before and after intrave nous contrast administration. COMPARISON: CT brain 10/04/2013 FINDINGS: CSF spaces: Basal cisterns are patent. No extra-axial fluid collections. Ventricles are normal in size and shape. Brain: No midline shift. No intracranial bleeds or masses. No abnormal intracranial enhancement. The brainstem appears normal. Diffusion-weighted images demonstrate no acute infarct. Normal intrav ascular flow voids are present. Single small lacunar infarct noted in the left periatrial white matter. Mild white matter chronic isc hemic change noted as well. No abnormal enhancement. Both hippocampal formations have appropriate mor phology and signal. Skull and face: Calvarial marrow is normal in signal. Orbits appear normal. Sinuses: Sinuses and mastoids appear clear. IMPRESSION: Small lacunar white matter infarct noted in the left periatrial white matter. No acute infarct, hemor rhage or mass lesion. Reviewed by: Beto Dudley MD on 10/18/2023 2:49 PM AKST Approved by: Beto Dudley MD on 10/18/2023 2:49 PM AKST Station ID: [id number]
[2023-10-18] MEDS ORDERED: GADOTERATE MEGLUMINE 10 MMOL/20 ML VIAL IVP ONE (18:42)
== END 2023-10-18 08:57 | disposition home or self-care (01) ==
LOC: DI 08:56
PROVIDERS: ATTEND Physician Assistant
DX: R41.3 Other amnesia (principal); Z86.73 Personal history of transient ischemic attack (TIA), and cerebral infarction without residual deficits; I63.81 Other cerebral infarction due to occlusion or stenosis of small artery
CPT/HCPCS: 70553; A9575

== ENCOUNTER 2023-11-22 16:10 | Outpatient (CLI) | payer OTHER ==
[2023-11-22 16:30] LABS: BASOPHILS # (AUTO) 0.1 10^3/uL (0.0-0.1); BASOPHILS % (AUTO) 1.6 %; EOSINOPHILS # (AUTO) 0.2 10^3/uL (0.0-0.7); EOSINOPHILS % (AUTO) 2.4 %; HCT - HEMATOCRIT 39.9 % (37.0-47.0); HGB - HEMOGLOBIN 12.4 g/dL (12.0-16.0); LYMPHOCYTES # (AUTO) 2.1 10^3/uL (1.5-3.5); LYMPHOCYTES % (AUTO) 33.2 %; MEAN CORPUSCULAR HEMOGLOBIN 28.8 pg (27.0-31.0); MEAN CORPUSCULAR HGB CONC 31.1 g/dL (32.0-36.0); MEAN CORPUSCULAR VOLUME 92.6 fL (81.0-99.0); MEAN PLATELET VOLUME 8.9 fL (7.9-10.8); MONOCYTES # (AUTO) 0.6 10^3/uL (0.0-1.0); MONOCYTES % (AUTO) 8.8 %; NEUTROPHILS # (AUTO) 3.4 10^3/uL (1.5-6.6); NEUTROPHILS % (AUTO) 53.7 %; PLT - PLATELET COUNT 483 10^3/uL (130-450); RED BLOOD COUNT 4.31 10^6/uL (4.20-5.40); RED CELL DISTRIBUTION WIDTH 13.2 % (12.0-15.0); WHITE BLOOD COUNT 6.4 x10^3/uL (4.8-10.8)
--- NOTE | 2023-11-22 16:39 | XRAY Report ---
PROCEDURE: Chest 2V INDICATIONS: UNSPECIFIED POST COVID 19 CONDITION TECHNIQUE: 2 views of the chest were acquired. COMPARISON: CT chest 10/13/2023. FINDINGS: Surgical changes and devices: Surgical clips projecting over the left chest wall.. Lungs and pleura: No pleural effusions or pneumothorax. Lungs are clear. Mediastinum: Mediastinal contours appear normal. Heart size is normal. Bones and chest wall: No suspicious bony lesions. Overlying soft tissues appear unremarkable. IMPRESSION: No acute cardiopulmonary process. Reviewed by: Mike Peres MD on 11/22/2023 4:38 PM PST Approved by: Miek Peres MD on 11/22/2023 4:38 PM PST Station ID: [id number]
== END 2023-11-22 16:11 | disposition home or self-care (01) ==
LOC: DI 16:10
PROVIDERS: ATTEND Nurse Practitioner
DX: R05.9 Cough, unspecified (principal); U09.9 Post COVID-19 condition, unspecified
CPT/HCPCS: 36415; 85025; 85379

== ENCOUNTER 2024-01-25 10:23 | Outpatient (CLI) | payer OTHER ==
[2024-01-25 11:01] LABS: CALCIUM 9.7 mg/dL (8.5-10.3); CREATININE 0.7 mg/dL (0.6-1.3); POTASSIUM 4.2 mmol/L (3.5-4.5)
== END 2024-01-25 10:24 | disposition home or self-care (01) ==
LOC: LAB 10:23
PROVIDERS: ATTEND Physician Assistant
DX: E23.2 Diabetes insipidus (principal); E53.8 Deficiency of other specified B group vitamins
CPT/HCPCS: 36415; 80048; 82607

== ENCOUNTER 2024-01-29 21:50 | Emergency (ER) | payer OTHER ==
[2024-01-29 22:22] VITALS: BP 106/60; O2SAT 96
--- NOTE | 2024-01-29 23:16 | ED Physician Documentation ---
PD HPI LOWER EXT INJURY - Stated complaint Stated Complaint: RT HIP PX - Chief complaint Chief Complaint: Ext Problem - History obtained from History obtained from: Patient, Family - Additional information Additional information: The patient comes to the emergency department chief complaint of right hip pain. She reports that there was no injury but just that the pain came up suddenly today. She indicates that it hurts just above her right iliac crest and down through her inguinal area and anterior thigh. She states it hurts when she tries to straighten her leg but it is not bad with flexion. She states that she has had quite a bit to drink tonight to try to help with the pain. No popping or clicking in the joint. No history of sciatica or any other hip problems. The patient's states actually, he thinks it started when they had sex last night and afterwards the patient complained of feeling like she had pulled a muscle in her groin and thigh. It was on the same side and when the brings this up, the patient agrees that it did actually start then. No other complaints at this time. No numbness or tingling in the lower extremities. PD PAST MEDICAL HISTORY - Past Medical History Cardiovascular: None Respiratory: COPD Neuro: None Endocrine/Autoimmune: Other GI: None SCIENTIFIC ILLUSTRATOR: None : None HEENT: None Psych: Anxiety Musculoskeletal: None Derm: None Other Past Medical History: Diabetes Insipidus - Past Surgical History Past Surgical History: Yes /SCIENTIFIC ILLUSTRATOR: Hysterectomy - Present Medications Home Medications: Ambulatory Orders Medication Instructions Recorded Confirmed Fluoxetine HCl [Prozac] 20 mg PO BID 04/09/13 01/11/24 Desmopressin Acetate 0.2 mg PO BID 10/04/13 01/11/24 Aspirin [Vazalore] 81 mg PO DAILY 01/11/24 01/11/24 Losartan [Cozaar] 50 mg PO DAILY 01/11/24 01/11/24 Pravastatin [Pravachol] 40 mg PO DAILY 01/11/24 01/11/24 - Allergies Allergies/Adverse Reactions: Allergies Allergy/AdvReac Type Severity Reaction Status Date / Time acetaminophen [From Percocet] Allergy unknown Verified 03/11/23 13:02 doxycycline Allergy Respiratory Verified 01/29/24 22:21 oxycodone HCl * AdvReac Dizziness Verified 01/29/24 22:21 [From Percocet] sulfamethoxazole AdvReac Dizziness Verified 01/29/24 22:21 [From Bactrim] trimethoprim [From Bactrim] AdvReac Dizziness Verified 01/29/24 22:21 - Social History Does the pt smoke?: No Smoking Status: Former smoker Does the pt drink ETOH?: Yes Does the pt have substance abuse?: No - Immunizations Immunizations are current?: No - POLST Patient has POLST: No PD ED PE NORMAL - Vitals Vital signs reviewed: Yes - General General: No acute distress, Well developed/nourished, Other (Awake, answering questions, slurring speech, clinically intoxicated. Smells of alcohol.) - HEENT HEENT: Atraumatic, PERRL, EOMI, Moist mucous membranes - Neck Neck: Supple, no meningeal sign - Respiratory Respiratory: No respiratory distress - Abdomen Abdomen: Soft, Non tender, Other (Moderately obese abdomen) - Derm Derm: Normal color, Warm and dry, No rash - Extremities Extremities: No deformity - Neuro Neuro: Alert and oriented X 3 - Psych Psych: Normal mood, Normal affect Results - Vitals Vitals: Vital Signs - 24 hr 01/29/24 22:14 Temperature 36.7 C Heart Rate 71 Respiratory 18 Rate Blood Pressure 106/60 O2 Saturation 96 Oxygen O2 Source Room air - Rads (name of study) Right hip x-ray series with pelvis Relevant Findings:: Final report received, See rad report (Negative) PD Medical Decision Making - ED course Complexity details: reviewed results, re-evaluated patient, considered differential, d/w patient, d/w family ED course: The patient's x-ray series the right hip was negative. She was given doses of Toradol and Decadron to help with her discomfort. I did not give her any stronger analgesia, secondary to the fact that she was already quite intoxicated. I discussed with the patient and her significant other that the injury/pain does seem to be soft tissue in nature and that it should be expected to heal on its own. There is no further intervention from the emergency department. Patient stable for discharge. Departure - Departure Disposition: 01 Home, Self Care Clinical Impression: Inguinal strain Qualifiers: Encounter type: initial encounter Laterality: right Qualified Code(s): S76.211A - Strain of adductor muscle, fascia and tendon of right thigh, initial encounter Condition: Stable Instructions: ED Strain Muscle Ext Comments: Your x-ray series looks good and there is no evidence of an emergent condition. You have not reported any trauma or other trigger for this, other than possibly straining your hip flexors while having sexual intercourse last night. This is certainly possible, as your pain location does not seem to go along with sciatica or a problem in your bones and joints, and your x-rays look good. You have been given a steroid and an anti-inflammatory tonight which hopefully will provide some relief. Please do not drink any more alcohol tonight. You may follow-up with your primary doctor for any further concerns in this regard.
[2024-01-29] MEDS: KETOROLAC 60 MG/2 ML VIAL IM STA (23:18)
[2024-01-29] MEDS: DEXAMETHASONE 10 MG/ML VIAL IM STA (23:19)
--- NOTE | 2024-01-30 00:38 | XRAY Report ---
PROCEDURE: Hip w/Pelvis 2-3V RT INDICATIONS: R hip pain TECHNIQUE: 3 views of the hip were acquired. COMPARISON: None. FINDINGS: Bones: No fractures or dislocations. No suspicious bony lesions. Soft tissues: No suspicious soft tissue calcifications or masses. IMPRESSION: No acute bony abnormality. Reviewed by: Natasha Cervantes MD on 01/30/2024 12:37 AM PDT Approved by: Natasha Cervantes MD on 01/30/2024 12:37 AM PDT Station ID: [id number]
== END 2024-01-29 23:45 | disposition home or self-care (01) ==
LOC: ED 21:50
DX: S76.211A Strain of adductor muscle, fascia and tendon of right thigh, initial encounter (principal); X58.XXXA Exposure to other specified factors, initial encounter; Z87.891 Personal history of nicotine dependence
CPT/HCPCS: 96372; 99283

== ENCOUNTER 2024-02-01 13:54 | Emergency (ER) | payer OTHER ==
[2024-02-01 14:47] LABS: BASOPHILS % (AUTO) 0.3 %; EOSINOPHILS % (AUTO) 0.1 %; HCT - HEMATOCRIT 43.7 % (37.0-47.0); HGB - HEMOGLOBIN 13.8 g/dL (12.0-16.0); LYMPHOCYTES # (AUTO) 0.3 10^3/uL (1.5-3.5); LYMPHOCYTES % (AUTO) 2.5 %; MEAN CORPUSCULAR HEMOGLOBIN 29.2 pg (27.0-31.0); MEAN CORPUSCULAR HGB CONC 31.6 g/dL (32.0-36.0); MEAN CORPUSCULAR VOLUME 92.4 fL (81.0-99.0); MEAN PLATELET VOLUME 9.4 fL (7.9-10.8); MONOCYTES # (AUTO) 0.3 10^3/uL (0.0-1.0); MONOCYTES % (AUTO) 2.5 %; NEUTROPHILS # (AUTO) 12.8 10^3/uL (1.5-6.6); NEUTROPHILS % (AUTO) 94.2 %; PLT - PLATELET COUNT 441 10^3/uL (130-450); RED BLOOD COUNT 4.73 10^6/uL (4.20-5.40); RED CELL DISTRIBUTION WIDTH 13.7 % (12.0-15.0); WHITE BLOOD COUNT 13.6 x10^3/uL (4.8-10.8)
--- NOTE | 2024-02-01 15:13 | ED Physician Documentation ---
PD HPI NVD - Stated complaint Stated Complaint: DIARRHEA, - Chief complaint Chief Complaint: Abd Pain - Additonal information Additional information: 53-year-old female presents emergency department for diarrhea since 5 AM. Patient says that she was here yesterday for hip pain x-rays were complete and there found to be benign. Patient also reports that she has history of diabetes insipidus. She has had no nausea or vomiting she does report that she had a salad at a restaurant yesterday and woke up today around 5 AM with sudden onset diarrhea. She has not had any recent antibiotic exposure and she is not have any known immunosuppression. She says that she is come to the emergency department diarrhea has significantly slowed down no fevers or chills. PD PAST MEDICAL HISTORY - Past Medical History Cardiovascular: None Respiratory: COPD Neuro: None Endocrine/Autoimmune: Other GI: None CARD CLEANER: None : None HEENT: None Psych: Anxiety Musculoskeletal: None Derm: None - Past Surgical History Past Surgical History: Yes /CARD CLEANER: Hysterectomy - Present Medications Home Medications: Ambulatory Orders Medication Instructions Recorded Confirmed Fluoxetine HCl [Prozac] 20 mg PO BID 04/09/13 01/11/24 Desmopressin Acetate 0.2 mg PO BID 10/04/13 01/11/24 Aspirin [Vazalore] 81 mg PO DAILY 01/11/24 01/11/24 Losartan [Cozaar] 50 mg PO DAILY 01/11/24 01/11/24 - Allergies Allergies/Adverse Reactions: Allergies Allergy/AdvReac Type Severity Reaction Status Date / Time acetaminophen [From Percocet] Allergy unknown Verified 02/01/24 14:30 doxycycline Allergy Respiratory Verified 02/01/24 14:12 oxycodone HCl * AdvReac Dizziness Verified 02/01/24 14:12 [From Percocet] sulfamethoxazole AdvReac Dizziness Verified 02/01/24 14:12 [From Bactrim] trimethoprim [From Bactrim] AdvReac Dizziness Verified 02/01/24 14:12 - Social History Does the pt smoke?: No Smoking Status: Former smoker Does the pt drink ETOH?: Yes Does the pt have substance abuse?: No - Immunizations Immunizations are current?: No - POLST Patient has POLST: No PD ED PE NORMAL - Vitals Vital signs reviewed: Yes - General General: Alert and oriented X 3, No acute distress, Well developed/nourished - HEENT HEENT: Atraumatic, PERRL - Cardiac Cardiac: RRR, No murmur, No gallop, Strong equal pulses - Respiratory Respiratory: No respiratory distress, Clear bilaterally - Abdomen Abdomen: Soft, Non tender, Other (Hyperactive bowel sounds) - Back Back: No CVA TTP - Derm Derm: Normal color, Warm and dry, No rash - Psych Psych: Normal mood, Normal affect Results - Vitals Vitals: Vital Signs - 24 hr 02/01/24 02/01/24 02/01/24 14:07 16:11 16:52 Temperature 36.9 C 36.8 C Heart Rate 113 H 82 77 Respiratory 20 15 16 Rate Blood Pressure 131/87 H 132/82 H 121/76 O2 Saturation 100 100 97 Oxygen O2 Source Room air - Labs Labs: Laboratory Tests 02/01/24 02/01/24 02/01/24 14:18 14:38 14:38 WBC 13.6 H RBC 4.73 Hgb 13.8 Hct 43.7 MCV 92.4 MCH 29.2 MCHC 31.6 L RDW 13.7 Plt Count 441 MPV 9.4 Neut # (Auto) 12.8 H Lymph # (Auto) 0.[address] # (Auto) 0.3 Eos # (Auto) 0.0 Baso # (Auto) 0.0 Absolute Nucleated RBC 0.00 Nucleated RBC % 0.0 Sodium 141 Potassium 4.0 Chloride 108 Carbon Dioxide 23 Anion Gap 10.0 BUN 15 Creatinine 0.6 Estimated GFR (MDRD) 104 Glucose 123 H POC Whole Bld Glucose 125 H Calcium 10.1 Total Bilirubin 0.4 AST 17 ALT 20 Alkaline Phosphatase 96 Total Protein 8.3 Albumin 4.6 Globulin 3.7 Albumin/Globulin Ratio 1.2 Lipase 27 PD Medical Decision Making - ED course ED course: 53-year-old female presents emergency department for diarrhea. She does have mild leukocytosis, WBC 13.6 with no electrolyte abnormalities. She is given Zofran here in the emergency department she has had 1 episode of diarrhea here is able to tolerate p.o. including fluids and food without any emesis she reports some mild nausea Zofran alleviated the symptoms. Stool sent for further studies patient was told we will call her with the results. At this point in time believe that she is safe for discharge she is given strict ER return precautions and told to follow primary care provider. Patient told after 24 hours of diarrhea to go ahead and start Imodium but patient says that diarrhea has significantly slowed down to the point where she does not like she needs Imodium at this point in time. Departure - Departure Disposition: 01 Home, Self Care Clinical Impression: Diarrhea Qualifiers: Diarrhea type: unspecified type Qualified Code(s): R19.7 - Diarrhea, unspecified Instructions: ED Diet Vomiting Diarrhea Comments: Thank you for trusting us with your care, we have evaluated you for diarrhea. Your labs do not show any electrolyte abnormalities your sodium is fine as well as your magnesium and potassium. At this point, believe that you are safe for discharge. After about 24 hours feel free to start taking some Imodium for your diarrhea. We have sent your stool off for samples we will call you if there is any abnormal results. Make sure that you are drinking plenty of fluids with electrolytes things like Pedialyte, Gatorade, coconut water to help with rehydrating her body. Please follow-up with your primary care provider about your ongoing hip pain. Forms: PCP List Discharge Date/Time: 02/01/24 16:54
[2024-02-01 15:50] LABS: ALBUMIN 4.6 g/dL (3.2-5.5); ALBUMIN/GLOBULIN RATIO 1.2 (1.0-2.2); BILIRUBIN,TOTAL 0.4 mg/dL (0.2-1.0); CALCIUM 10.1 mg/dL (8.5-10.3); CREATININE 0.6 mg/dL (0.6-1.3); TOTAL PROTEIN 8.3 g/dL (6.4-8.9)
[2024-02-01] MEDS: ONDANSETRON 4 MG/2 ML VIAL IVP STA (16:38)
[2024-02-01 16:56] VITALS: BP 121/76; O2SAT 97
[2024-02-02 18:08] LABS: ADENOVIRUS F 40/41 Not Detected (Not Detected); ASTROVIRUS Not Detected (Not Detected); C DIFFICILE TOXIN A/B Not Detected (Not Detected); CAMPYLOBACTER Not Detected (Not Detected); CRYPTOSPORIDIUM Not Detected (Not Detected); CYCLOSPORA CAYETANENSIS Not Detected (Not Detected); ENTAMOEBA HISTOLYTICA Not Detected (Not Detected); ENTEROAGGREGATIVE E COLI Not Detected (Not Detected); ENTEROPATHOGENIC E COLI Not Detected (Not Detected); ENTEROTOXIGENIC E COLI Not Detected (Not Detected); GIARDIA LAMBLIA Not Detected (Not Detected); NOROVIRUS GI/GII Detected (Not Detected); PLESIOMONAS SHIGELLOIDES Not Detected (Not Detected); ROTAVIRUS A Not Detected (Not Detected); SALMONELLA Not Detected (Not Detected); SAPOVIRUS Not Detected (Not Detected); SHIGA-TOXIN-PRODUCING E COLI Not Detected (Not Detected); SHIGELLA/ENTEROINVASIVE E COLI Not Detected (Not Detected); VIBRIO Not Detected (Not Detected); VIBRIO CHOLERAE Not Detected (Not Detected); YERSINIA ENTEROCOLITICA Not Detected (Not Detected)
== END 2024-02-01 16:54 | disposition home or self-care (01) ==
LOC: ED 13:54
DX: R19.7 Diarrhea, unspecified (principal); Z87.891 Personal history of nicotine dependence
CPT/HCPCS: 36415; 80053; 83690; 85025; 87507; 96374; 99284

== ENCOUNTER 2024-04-11 08:07 | Outpatient (CLI) | payer OTHER ==
[2024-04-11 08:16] LABS: BASOPHILS # (AUTO) 0.1 10^3/uL (0.0-0.1); BASOPHILS % (AUTO) 1.2 %; EOSINOPHILS # (AUTO) 0.1 10^3/uL (0.0-0.7); EOSINOPHILS % (AUTO) 2.5 %; HCT - HEMATOCRIT 40.6 % (37.0-47.0); HGB - HEMOGLOBIN 12.3 g/dL (12.0-16.0); LYMPHOCYTES # (AUTO) 1.5 10^3/uL (1.5-3.5); LYMPHOCYTES % (AUTO) 28.9 %; MEAN CORPUSCULAR HGB CONC 30.3 g/dL (32.0-36.0); MEAN CORPUSCULAR VOLUME 92.3 fL (81.0-99.0); MEAN PLATELET VOLUME 9.3 fL (7.9-10.8); MONOCYTES # (AUTO) 0.4 10^3/uL (0.0-1.0); NEUTROPHILS # (AUTO) 3.1 10^3/uL (1.5-6.6); NEUTROPHILS % (AUTO) 59.2 %; PLT - PLATELET COUNT 368 10^3/uL (130-450); RED CELL DISTRIBUTION WIDTH 13.1 % (12.0-15.0); WHITE BLOOD COUNT 5.2 x10^3/uL (4.8-10.8)
[2024-04-11 08:47] LABS: ALBUMIN 4.5 g/dL (3.2-5.5); ALBUMIN/GLOBULIN RATIO 1.4 (1.0-2.2); ALKALINE PHOSPHATASE 88 IU/L (42-121); ALT ALANINE AMINOTRANSFERASE 44 IU/L (10-60); AST ASPARTATE AMINOTRANSFERASE 31 IU/L (10-42); BILIRUBIN,TOTAL 0.4 mg/dL (0.2-1.0); BUN - BLOOD UREA NITROGEN 15 mg/dL (6-20); CALCIUM 9.6 mg/dL (8.5-10.3); CARBON DIOXIDE - CO2 30 mmol/L (21-32); CHLORIDE 102 mmol/L (101-111); CHOLESTEROL 167 mg/dL; CREATININE 0.6 mg/dL (0.6-1.3); GFR - MDRD 104 (>89); GLUCOSE 100 mg/dL (74-104); HDL CHOLESTEROL 83 mg/dL; LDL CHOLESTEROL,CALCULATED 75 mg/dL; LDL/HDL RATIO 0.9 (<4.4); POTASSIUM 4.3 mmol/L (3.5-4.5); SODIUM 137 mmol/L (135-145); THYROID STIMULATING HORMONE 3.51 uIU/mL (0.34-5.60); TOTAL PROTEIN 7.8 g/dL (6.4-8.9); TRIGLYCERIDES 45 mg/dL (48-352); VLDL CHOLESTEROL 9 mg/dL
== END 2024-04-11 08:08 | disposition home or self-care (01) ==
LOC: LAB 08:07
PROVIDERS: ATTEND Physician Assistant Medical
DX: Z00.00 Encounter for general adult medical examination without abnormal findings (principal)
CPT/HCPCS: 36415; 80053; 80061; 83721; 84443; 85025

== ENCOUNTER 2024-07-19 08:45 | Outpatient (CLI) | payer OTHER ==
[2024-07-19 09:14] LABS: ALBUMIN 4.3 g/dL (3.2-5.5); ALBUMIN/GLOBULIN RATIO 1.2 (1.0-2.2); BILIRUBIN,TOTAL 0.4 mg/dL (0.2-1.0); CALCIUM 9.4 mg/dL (8.5-10.3); CREATININE 0.7 mg/dL (0.6-1.3); POTASSIUM 4.1 mmol/L (3.5-4.5); TOTAL PROTEIN 7.8 g/dL (6.4-8.9)
== END 2024-07-19 08:46 | disposition home or self-care (01) ==
LOC: LAB 08:45
PROVIDERS: ATTEND Physician Assistant Medical
DX: E21.3 Hyperparathyroidism, unspecified (principal); F32.A Depression, unspecified; E53.8 Deficiency of other specified B group vitamins
CPT/HCPCS: 36415; 80053; 82306; 82607